=== PATIENT | male | born 1990 | race African-American/Black ===

== ENCOUNTER 2017-01-05 11:41 | Emergency (ER) | payer OTHER ==
[~2017-01-05] VITALS: Ht 167.6 cm; Wt 69.2 kg
[~2017-01-05 11:41] MED LIST: NOHOMEMEDS
[2017-01-05] MEDS ORDERED: NAPROSYN500 MG PO (12:53)
[2017-01-05] MEDS ORDERED: ULTRAM50 MG PO (12:53)
[2017-01-05] MEDS ORDERED: FLEXERIL10 MG PO (12:53)
[2017-01-05 13:23] VITALS: BP 105/55
== END 2017-01-05 13:25 | disposition home or self-care (01) ==
LOC: EME 11:41
DX: M54.5 Low back pain (principal); M62.838 Other muscle spasm; V49.40XA Driver injured in collision with unspecified motor vehicles in traffic accident, initial encounter
CPT/HCPCS: 99281; 99284

== ENCOUNTER 2017-03-22 17:40 | Emergency (ER) | payer BC ==
[~2017-03-22] VITALS: Ht 170.2 cm; Wt 68.0 kg
[~2017-03-22 17:40] MED LIST changes: +FLEXERIL10 MG PO; +NAPROSYN500 MG PO; +ULTRAM50 MG PO
[2017-03-22 18:40] LABS: HEMATOCRIT 42.5 % (38.0-50.0); MCH 26.1 PG (29.0-34.0); MCV 81.4 FL (86-99); MEAN PLAT.VOLUME 10.4 uM^3 (9.0-12.4); PLATELET COUNT 277 K/uL (156-360); RBC DIS.WIDTH-CV 12.7 % (11.8-14.6); RBC DIS.WIDTH-SD 37.6 % (39-53); RED BLOOD COUNT 5.22 M/uL (4.00-5.50); WHITE BLOOD COUNT 5.1 K/uL (4.1-10.2)
[2017-03-22 19:06] LABS: TROP-I INTERPRETATION NEGATIVE; TROPONIN-I < 0.01 ng/mL (0.0-0.30)
[2017-03-22 19:17] VITALS: BP 102/58
[2017-03-22 19:24] LABS: CHLORIDE 107 mEq/L (99-109); POTASSIUM 3.9 mEq/L (3.7-5.4); SODIUM 140 mEq/L (136-147)
[2017-03-22 19:26] LABS: GLUCOSE 84 mg/dL (70-99)
[2017-03-22 19:27] LABS: ANION GAP 9 MEQ/L (2-14)
[2017-03-22 19:28] LABS: TOTAL BILIRUBIN 0.5 mg/dL (0.0-1.0)
[2017-03-22 19:30] LABS: ALKALINE PHOSPHATASE 52 IU/L (3-129); GFR ESTIMATE (CALCULATED) > 59 mL/min/
[2017-03-22 19:31] LABS: UREA NITROGEN (BUN) 12 mg/dL (9-23)
== END 2017-03-22 18:52 | disposition left against medical advice (07) ==
LOC: EME 17:40 → EXP 18:32
PROVIDERS: Physician Assistant
DX: R07.9 Chest pain, unspecified (principal)
CPT/HCPCS: 80053; 84484; 85027; 93005; 99281; 99283

== ENCOUNTER 2018-02-11 08:59 | Emergency (ER) | payer BC ==
[~2018-02-11] VITALS: Ht 167.6 cm; Wt 76.4 kg
[2018-02-11 09:01] VITALS: BP 118/68
[2018-02-11] MEDS ORDERED: BENADRYL25 MG PO (09:52)
[2018-02-11] MEDS ORDERED: MEDROL DOSEPAK4 MG PO (09:52)
== END 2018-02-11 10:24 | disposition home or self-care (01) ==
LOC: EME 08:59
DX: L25.9 Unspecified contact dermatitis, unspecified cause (principal)
CPT/HCPCS: 99281; 99284